=== PATIENT | female | born 1970 | race Caucasian/White ===

== ENCOUNTER 2020-04-19 10:59 | Emergency (ER) | payer OTHER, SELFPAY ==
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
[2020-04-19 11:12] VITALS: BP 134/84; PULSE 108; RESP 20; TEMP 37.1; O2SAT 100
[2020-04-19 11:19] VITALS: BP 134/84; PULSE 108; RESP 20; TEMP 37.1; O2SAT 100
== END 2020-04-19 11:23 | disposition home or self-care (01) ==
PROVIDERS: Emergency Provider Nurse Practitioner Family
DX: M62.830 Muscle spasm of back (principal); M62.838 Other muscle spasm; F17.200 Nicotine dependence, unspecified, uncomplicated; F41.9 Anxiety disorder, unspecified; M16.0 Bilateral primary osteoarthritis of hip; J44.9 Chronic obstructive pulmonary disease, unspecified; H40.9 Unspecified glaucoma
CPT/HCPCS: 99213; G0463